=== PATIENT | female | born 1990 | race Caucasian/White ===

== ENCOUNTER 2016-06-17 08:43 | Outpatient (CLI) | payer MEDICAID, OTHER ==
[~2016-06-17] VITALS: Ht 162.6 cm; Wt 94.5 kg
[2016-06-17 09:42] VITALS: BP 130/76
== END 2016-06-17 18:49 | disposition home or self-care (01) ==
LOC: LDOP 08:43
PROVIDERS: ATTEND Obstetrics & Gynecology
DX: O26.893 Other specified pregnancy related conditions, third trimester (principal); R52 Pain, unspecified; W18.39XA Other fall on same level, initial encounter; Z3A.38 38 weeks gestation of pregnancy
CPT/HCPCS: 36415; 59025; 76815; 81001; 85460; 99201; G0463